=== PATIENT | female | born 1990 | race Two or more races ===

== ENCOUNTER 2017-04-13 21:52 | Emergency (ER) | payer OTHER ==
[~2017-04-13] VITALS: Ht 152.4 cm; Wt 50.0 kg
[2017-04-13] MEDS ORDERED: ONDANSETRON 2MG/ML, 2ML IVPush PRN (22:30)
[2017-04-13] MEDS ORDERED: SODIUM CHLORIDE 0.9% 1,000ML IVBOLUS ONE (22:30)
[2017-04-13] MEDS ORDERED: PLEASE ENTER HEIGHT AND WEIGHT MC SCH (22:30)
[2017-04-13] MEDS ORDERED: PLEASE ENTER ALLERGIES MC SCH ×2 (22:30)
[2017-04-13] MEDS ORDERED: ONDANSETRON 2MG/ML, 2ML ONE (22:35)
[2017-04-13 22:42] LABS: ASPARTATE AMINO TRANSFERASE 23 U/L (15-37); BLOOD UREA NITROGEN 14 mg/dL (7-18)
[2017-04-14] MEDS ORDERED: OXYcodone/APAP 10/325MG TABLET ONE (01:21)
[2017-04-14] MEDS ORDERED: OXYcodone/APAP 10/325MG TABLET PO ONE (01:30)
[2017-04-14 01:45] LABS: HCG UR OBC PASS
[2017-04-14 02:44] VITALS: BP 105/57
== END 2017-04-14 02:52 | disposition home or self-care (01) ==
LOC: ED 23:58
DX: R11.2 Nausea with vomiting, unspecified (principal); E86.0 Dehydration
CPT/HCPCS: 36415; 80053; 81001; 81025; 83690; 96361; 96374; 99284; J2405; J7030